=== PATIENT | male | born 1970 | race Caucasian/White ===

== ENCOUNTER 2017-06-22 07:35 | Emergency (ER) | payer BC, OTHER ==
[~2017-06-22] VITALS: Ht 175.3 cm; Wt 79.4 kg
[2017-06-22 07:40] VITALS: BP_SYST 161
--- NOTE | 2017-06-22 07:43 | NUR ---
Patient to ER bed 07 to gown for evaluation. Side rails up. Report given to HERMES Ryan.
--- NOTE | 2017-06-22 07:55 | NUR ---
Pt complains of right lower abdominal pain since yesterday, denies n/v or diarrhea. Pt also complains of right chest discomfort that happened 2 weeks ago that has radiated to back. Pt states "2 weeks ago heard a pop and has a pain since then." Pt is able to communicate in full sentences. No other injuries/complaints per pt or noted.
--- NOTE | 2017-06-22 07:57 | NUR ---
ER at bedside examining patient.
[2017-06-22] MEDS ORDERED: PIPERACILLIN/TAZO 3.38 GM in NS 50 ML IV ONE (08:00)
[2017-06-22] MEDS ORDERED: MORPHINE 4 MG/ML INJ. SYRINGE IVP ONE (08:00)
[2017-06-22] MEDS ORDERED: DIPHENHYDRAMINE INJ 50 MG/ML VIAL IVP ONE (08:00)
--- NOTE | 2017-06-22 08:05 | NUR ---
# 20 gauge angiocath placed to LAC. Use of asceptic technique. Opsite placed over site. Blood return noted. Blood for lab drawn from site. Flushed with 10 cc of normal saline. No evidence of infiltration noted. Patient tolerated well.
--- NOTE | 2017-06-22 08:11 | NUR ---
Pt went to radiology in stable condition
[2017-06-22 08:13] LABS: BILIRUBIN,URINE NEGATIVE (NEGATIVE); BLOOD, URINE 2+ (NEGATIVE); CLARITY/URINE CLEAR (CLEAR); COLOR,URINE YELLOW (YELLOW); GLUCOSE,URINE NEGATIVE (NEGATIVE); KETONES,URINE NEGATIVE (NEGATIVE); LEUKOCYTE ESTERASE ,URINE NEGATIVE (NEGATIVE); NITRITE, URINE NEGATIVE (NEGATIVE); PH,URINE 5.5 (5.0-8.0); PROTEIN URINE NEGATIVE (NEGATIVE); UROBILINOGEN,URINE 0.2 (0.2-1.0)
[2017-06-22] MEDS ORDERED: PIPERACILLIN/TAZOBACTAM 3.375 GM/VIAL (ZOSYN) IV ONE (08:16)
[2017-06-22] MEDS ORDERED: MORPHINE SULFATE 10 MG/ML VIAL ONE (08:18)
--- NOTE | 2017-06-22 08:20 | NUR ---
Pt returned from radiology in stable condition
[2017-06-22 08:22] LABS: BASOPHILS % (AUTO) 0.5 % (0.0-2.0); EOSINOPHILS # (AUTO) 0.1 K/uL (0.0-0.4); EOSINOPHILS % (AUTO) 1.9 % (0.0-4.0); HEMATOCRIT 39.3 % (36-54); HEMOGLOBIN 13.4 g/dL (14.0-18.0); LYMPHOCYTES # (AUTO) 2.6 K/uL (1.0-5.5); MEAN CORPUSCULAR HEMOGLOBIN 32 pg (27-31); MEAN CORPUSCULAR HGB CONC 34 % (32-36); MEAN CORPUSCULAR VOLUME 92 fL (79.0-98.0); MONOCYTES # (AUTO) 0.8 K/uL (0.0-1.0); MONOCYTES % (AUTO) 10.3 % (1.7-9.3); NEUTROPHILS # (AUTO) 4.1 K/uL (1.8-7.7); NEUTROPHILS % (AUTO) 52.3 % (40.0-70.0); PLATELET COUNT (AUTO) 244 K/uL (130-430); RED BLOOD CELL COUNT(AUTO) 4.26 MIL/uL (4.2-6.2); RED CELL DISTRIBUTION WIDTH 11.8 % (9.0-15.0); WHITE BLOOD COUNT (AUTO) 7.6 K/uL (4.8-10.8)
--- NOTE | 2017-06-22 08:23 | NUR ---
Pt was given medication, tolerated well. No noted adverse reaction, will continue to monitor.
[2017-06-22 08:37] LABS: CALCIUM 9.5 mg/dL (8.4-11.0); CREATININE 0.87 mg/dL (0.55-1.30); POTASSIUM 3.8 mmol/L (3.5-5.1)
[2017-06-22 08:38] LABS: PROTHROMBIN TIME 9.9 SECS (9.5-12.5)
[2017-06-22 08:42] LABS: ALBUMIN 4.7 g/dL (3.4-4.8); TOTAL BILIRUBIN 0.3 mg/dL (0.0-1.0)
[2017-06-22 08:52] LABS: BACTERIA,URINE FEW /HPF (None Seen); MUCUS,URINE 1+ /LPF (None Seen); WBC,URINE 0-3 /HPF (0-3)
--- NOTE | 2017-06-22 09:49 | NUR ---
Patient given written and verbal discharge instructions and verbalizes understanding. ER MD discussed with patient the results and treatment provided. Patient in stable condition. ID arm band removed. IV catheter removed intact and dressing applied, no active bleeding. Rx of cipro and motrin given. Patient educated on pain management and to follow up with PMD. Pain Scale 2. Opportunity for questions provided and answered.
[2017-06-22 09:50] VITALS: BP_SYST 121
== END 2017-06-22 09:50 | disposition home or self-care (01) ==
LOC: SED 07:35
DX: N39.0 Urinary tract infection, site not specified (principal)
CPT/HCPCS: 36415; 71045; 74176; 80053; 81000; 83605; 83690; 85025; 85610; 87040; 93005; 96365; 96375; 99285; J1200; J2270; J2543

== ENCOUNTER 2021-10-09 22:35 | Emergency (ER) | payer BC ==
[~2021-10-09] VITALS: Ht 175.3 cm; Wt 72.6 kg
[2021-10-09 22:48] VITALS: BP_SYST 146
--- NOTE | 2021-10-09 23:59 | NUR ---
Patient to ER bed 5 to gown for evaluation. Side rails up. Report given to Gwendolyn MIRZA(yesi).
[2021-10-10 00:20] LABS: BASOPHILS % (AUTO) 0.1 % (0.0-2.0); EOSINOPHILS % (AUTO) 0.2 % (0.0-4.0); HEMATOCRIT 43.2 % (36-54); HEMOGLOBIN 15.4 g/dL (14.0-18.0); LYMPHOCYTES # (AUTO) 1.1 K/uL (1.0-5.5); MEAN CORPUSCULAR HEMOGLOBIN 31 pg (27-31); MEAN CORPUSCULAR HGB CONC 36 % (32-36); MEAN CORPUSCULAR VOLUME 87 fL (79.0-98.0); MONOCYTES # (AUTO) 1.3 K/uL (0.0-1.0); MONOCYTES % (AUTO) 18.7 % (1.7-9.3); NEUTROPHILS # (AUTO) 4.6 K/uL (1.8-7.7); PLATELET COUNT (AUTO) 217 K/uL (130-430); RED BLOOD CELL COUNT(AUTO) 4.98 MIL/uL (4.2-6.2); RED CELL DISTRIBUTION WIDTH 13.1 % (9.0-15.0); WHITE BLOOD COUNT (AUTO) 7.1 K/uL (4.8-10.8)
--- NOTE | 2021-10-10 00:36 | NUR ---
Pt brought self in from home due to abd pain to LLQ accompanied by loose BM that started x5 days ago. Pt is unable to tolerate anything PO because of loose BM. No N&V present at this time. Hx of diverticulitis. Pt in no acute distress. Breathing adequately on RA. Addendum: 10/10/21 at 0046 by [id number] HERMES Snow
[2021-10-10 00:38] LABS: CALCIUM 8.4 mg/dL (8.4-11.0); CREATININE 1.09 mg/dL (0.55-1.30)
[2021-10-10 00:43] LABS: ALBUMIN 3.8 g/dL (3.4-4.8); TOTAL BILIRUBIN 0.3 mg/dL (0.0-1.0)
[2021-10-10] MEDS: HYDROcodone/ACETAMIN 5-325 MG TAB (NORCO/ VICODIN) PO ONE (00:43)
[2021-10-10] MEDS: DIPHENOXYLATE HCL/ATROP SULF 2.5 MG TAB PO ONE (00:44)
[2021-10-10 00:50] LABS: POTASSIUM 2.9 mmol/L (3.5-5.1)
--- NOTE | 2021-10-10 00:50 | NUR ---
[facility] called and reported a CL value for Potassium of 2.9 MD Vijay was made aware.
--- NOTE | 2021-10-10 01:15 | NUR ---
Stool sample collected and sent to lab.
[2021-10-10] MEDS: MORPHINE 4 MG INJ. 4 MG/ML VIAL IM ONE (02:31)
[2021-10-10] MEDS: POTASSIUM CHLORIDE 20 MEQ TAB.PRT.SR PO ONE (02:31)
[2021-10-10] MEDS ORDERED: LOM2.5 PO (03:07)
[2021-10-10] MEDS ORDERED: HYDR-3917 PO (03:07)
[2021-10-10] MEDS ORDERED: ONDA-8 TL (03:07)
[2021-10-10] MEDS ORDERED: PEPTO PO (03:07)
[2021-10-10 03:43] VITALS: BP_SYST 133
--- NOTE | 2021-10-10 03:44 | NUR ---
Patient given written and verbal discharge instructions and verbalizes understanding. ER MD Linares discussed with patient the results and treatment provided. Patient in stable condition. ID arm band removed. Rx of [place], Zofran, Bismuth Subs, Diphenoxylate-Atropine sent to pharmacy of choice. Patient educated on pain management and to follow up with PMD. Pain Scale 0/10 at discharge. Opportunity for questions provided and answered. Medication side effect fact sheet provided.
== END 2021-10-10 03:43 | disposition home or self-care (01) ==
LOC: SED 22:35
DX: K52.9 Noninfective gastroenteritis and colitis, unspecified (principal); E87.6 Hypokalemia; Z79.899 Other long term (current) drug therapy
CPT/HCPCS: 36415; 74176; 76376; 80053; 82272; 83605; 83690; 85025; 87040; 87045; 87177; 89055; 96372; 99284; J2270

== ENCOUNTER 2022-06-30 14:25 | Emergency (ER) | payer BC ==
[~2022-06-30] VITALS: Ht 165.1 cm; Wt 54.4 kg
[~2022-06-30 14:25] MED LIST: HYDR-3917 PO; LOM2.5 PO; ONDA-8 TL; PEPTO PO
--- NOTE | 2022-06-30 14:43 | NUR ---
PT COMES IN HERE FROM URGENT CARE WHO SENT HIM TO ER FOR FURTHER F/U. 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 DESCRIBES PAIN HEAVY/NUMBNESS TO LEFT ARM. ALSO WITH SOME MILD SOB. PT IN NAD, SPEAKING IN FULL SENTENCES, RESP EVEN AND UNLABORED, ON RA @98% SKIN W/D/I. WILL CONT TO MONITOR CLOSELY.
--- NOTE | 2022-06-30 14:45 | NUR ---
DR DONOVAN RICCI FOR EXAM, IV SL INSERTED TO LEFT AC. PLACED ON SHEAR OPERATOR.
[2022-06-30 14:49] VITALS: BP_SYST 122
[2022-06-30 15:41] LABS: BASOPHILS % (AUTO) 0.5 % (0.0-2.0); EOSINOPHILS % (AUTO) 0.8 % (0.0-4.0); HEMATOCRIT 36.6 % (36-54); HEMOGLOBIN 12.6 g/dL (14.0-18.0); INR 1.1 (0.80-1.20); LYMPHOCYTES # (AUTO) 1.5 K/uL (1.0-5.5); LYMPHOCYTES % (AUTO) 27.8 % (20.5-51.5); MEAN CORPUSCULAR HEMOGLOBIN 32 pg (27-31); MEAN CORPUSCULAR HGB CONC 34 % (32-36); MEAN CORPUSCULAR VOLUME 93 fL (79.0-98.0); MONOCYTES # (AUTO) 0.6 K/uL (0.0-1.0); MONOCYTES % (AUTO) 10.6 % (1.7-9.3); NEUTROPHILS # (AUTO) 3.2 K/uL (1.8-7.7); NEUTROPHILS % (AUTO) 60.3 % (40.0-70.0); PLATELET COUNT (AUTO) 196 K/uL (130-430); PROTHROMBIN TIME 10.9 SECS (9.5-12.5); RED BLOOD CELL COUNT(AUTO) 3.95 MIL/uL (4.2-6.2); RED CELL DISTRIBUTION WIDTH 13.4 % (9.0-15.0); WHITE BLOOD COUNT (AUTO) 5.3 K/uL (4.8-10.8)
[2022-06-30 16:14] LABS: ANION GAP 9 (5-15); CALCIUM 8.6 mg/dL (8.4-11.0); CHLORIDE 105 mmol/L (98-107); CREATININE 0.74 mg/dL (0.55-1.30); GLUCOSE 97 mg/dL (70-99); UREA NITROGEN, BLOOD 14 mg/dL (8-21)
[2022-06-30 16:15] LABS: GFR AFRICAN AMERICAN 144 mL/min (>90)
[2022-06-30 16:21] LABS: ALANINE AMINOTRANSFERASE 24 U/L (12-78); ALBUMIN 4.1 g/dL (3.4-4.8); ASPARTATE AMINOTRANSFERASE 19 U/L (10-37); PHOSPHORUS 2.9 mg/dL (2.7-4.5); TOTAL BILIRUBIN 0.7 mg/dL (0.0-1.0)
[2022-06-30 16:53] LABS: BILIRUBIN,URINE NEGATIVE (NEGATIVE); BLOOD, URINE 2+ (NEGATIVE); CLARITY/URINE CLEAR (CLEAR); COLOR,URINE YELLOW (YELLOW); GLUCOSE,URINE NEGATIVE (NEGATIVE); KETONES,URINE NEGATIVE (NEGATIVE); LEUKOCYTE ESTERASE ,URINE NEGATIVE (NEGATIVE); NITRITE, URINE NEGATIVE (NEGATIVE); PROTEIN URINE NEGATIVE (NEGATIVE); UROBILINOGEN,URINE 0.2 (0.2-1.0)
[2022-06-30 17:06] LABS: BARBITURATE, URINE NEGATIVE (NEG <=200); BENZODIAZEPINE, URINE NEGATIVE (NEG <=150); METHAMPHETAMINES SCREEN,URINE NEGATIVE (NEG <=500); URINE AMPHETAMINE NEGATIVE (NEG <=500); URINE METHADONE NEGATIVE (NEG <=200)
[2022-06-30 17:07] LABS: CANNABINOID, URINE POSITIVE (NEG <=50); COCAINE, URINE NEGATIVE (NEG <=150); OPIATE, URINE NEGATIVE (NEG <=100); PHENCYCLIDINE SCREEN,URINE NEGATIVE (NEG <=25); UR TRICYCLIC ANTIDEPRESSANTS NEGATIVE (NEG <=300); URINE OXYCODONE SCREEN NEGATIVE (NEG <=100); URINE PROPOXYPHENE SCREEN NEGATIVE (NEG <=300)
[2022-06-30 17:12] LABS: BACTERIA,URINE FEW /HPF (None Seen); MUCUS,URINE None Seen /LPF (None Seen); RBC,URINE 0-3 /HPF (0-3); WBC,URINE NONE SEEN /HPF (0-3)
[2022-06-30] MEDS ORDERED: ACET-2634 PO (17:47)
[2022-06-30] MEDS ORDERED: IBUP-1969 PO (17:47)
--- NOTE | 2022-06-30 18:29 | NUR ---
Patient given written and verbal discharge instructions and verbalizes understanding. ER MD discussed with patient the results and treatment provided. Patient in stable condition. ID arm band removed. IV catheter removed intact and dressing applied, no active bleeding. Rx of MOTRIN, TYLENOL given. Patient educated on pain management and to follow up with PMD. Pain Scale . Opportunity for questions provided and answered. Medication side effect fact sheet provided.
[2022-06-30 18:30] VITALS: BP_SYST 122
== END 2022-06-30 18:30 | disposition home or self-care (01) ==
LOC: SED 14:25
DX: R07.9 Chest pain, unspecified (principal); R20.2 Paresthesia of skin; R06.02 Shortness of breath; Z79.899 Other long term (current) drug therapy
CPT/HCPCS: 36415; 71045; 80053; 80307; 81000; 82550; 83735; 83880; 84100; 84484; 85025; 85379; 85610-TC; 85730-TC; 93005; 99285

== ENCOUNTER 2023-05-11 14:34 | Emergency (ER) | payer BC ==
[~2023-05-11] VITALS: Ht 175.3 cm; Wt 70.3 kg
[~2023-05-11 14:34] MED LIST changes: +ACET-2634 PO; +IBUP-1969 PO
[2023-05-11 14:48] VITALS: BP_SYST 152; PULSE 70; RESP 22; TEMP 98.3; O2SAT 100
[2023-05-11] MEDS ORDERED: DIPHTH,PERTUSS(ACELL),TET VAC 0.5 ML VIAL (Tdap) I.M. ONE (16:15)
[2023-05-11] MEDS ORDERED: IBUPROFEN 600 MG TABLET PO ONE (16:15)
[2023-05-11] MEDS ORDERED: HYDROcodone/ACETAMIN 10-325 MG TAB PO ONE (17:15)
[2023-05-11] MEDS ORDERED: LIDOCAINE/EPI 2% 1:100000 20 ML VIAL INJ ONE (17:45)
[2023-05-11] MEDS ORDERED: PENICILLIN G BENZATHINE 1.2 MMU/2 ML SYR IM ONE (18:00)
[2023-05-11] MEDS ORDERED: DICL75TA5 PO (18:17)
[2023-05-11] MEDS ORDERED: CLIN-142 PO (18:17)
[2023-05-11] MEDS ORDERED: HYDROcodone/ACETAMIN 5-325 MG TAB (NORCO/ VICODIN) PO ONE (18:30)
[2023-05-11] MEDS ORDERED: CLINDAMYCIN HCL 150 MG CAPSULE PO ONE (18:45)
== END 2023-05-11 18:30 | disposition home or self-care (01) ==
LOC: SED 14:34
DX: S41.111A Laceration without foreign body of right upper arm, initial encounter (principal); S41.131A Puncture wound without foreign body of right upper arm, initial encounter; Z79.899 Other long term (current) drug therapy; W22.8XXA Striking against or struck by other objects, initial encounter; Y93.89 Activity, other specified; Y92.89 Other specified places as the place of occurrence of the external cause; Y99.8 Other external cause status
CPT/HCPCS: 99283; 73060; 90715; 90471; 12001; J0561

== ENCOUNTER 2023-05-19 21:54 | Emergency (ER) | payer BC ==
[~2023-05-19] VITALS: Ht 175.3 cm; Wt 72.6 kg
[~2023-05-19 21:54] MED LIST changes: +CLIN-142 PO; +DICL75TA5 PO
[2023-05-19 22:07] VITALS: O2SAT 99
[2023-05-19 22:10] VITALS: O2SAT 99
== END 2023-05-19 22:12 | disposition home or self-care (01) ==
LOC: SED 21:54
DX: Z48.02 Encounter for removal of sutures (principal); Z79.899 Other long term (current) drug therapy
CPT/HCPCS: 99281